=== PATIENT | male | born 2005 | race Two or more races ===

== ENCOUNTER 2025-07-17 06:57 | Emergency (ER) | payer OTHER ==
[~2025-07-17] VITALS: Ht 182.9 cm; Wt 86.4 kg
[2025-07-17] MEDS: IBUPROFEN 800 MG TAB PO ONE (07:57)
[2025-07-17 10:04] VITALS: TEMP 97; O2SAT 98
[2025-07-17 10:08] VITALS: BP 122/63
== END 2025-07-17 10:13 | disposition home or self-care (01) ==
LOC: M ED 06:57
DX: R05.9 Cough, unspecified (principal); B34.9 Viral infection, unspecified; G47.33 Obstructive sleep apnea (adult) (pediatric)